=== PATIENT | male | born 1970 | race Asian ===

== ENCOUNTER 2020-07-15 14:17 | Outpatient (RCR) | payer OTHER, SELFPAY | END 2020-07-29 23:59 | LOC: EMPH 14:17 | PROVIDERS: Referring Provider Family Medicine Geriatric Medicine; Visit Provider Family Medicine Geriatric Medicine | DX: Z11.59 Encounter for screening for other viral diseases (principal) | CPT/HCPCS: 87635; U0003 ==

== ENCOUNTER 2020-08-27 10:53 | Outpatient (RCR) | payer OTHER, SELFPAY | END 2020-08-29 23:59 | LOC: EMPH 10:53 | PROVIDERS: Referring Provider Family Medicine Geriatric Medicine; Visit Provider Family Medicine Geriatric Medicine | DX: Z03.818 Encounter for observation for suspected exposure to other biological agents ruled out (principal) | CPT/HCPCS: 87426 ==

== ENCOUNTER 2020-09-23 08:05 | Outpatient (RCR) | payer OTHER, SELFPAY | END 2020-09-28 23:59 | LOC: EMPH 08:05 | PROVIDERS: Referring Provider Family Medicine Geriatric Medicine; Visit Provider Family Medicine Geriatric Medicine | DX: Z03.818 Encounter for observation for suspected exposure to other biological agents ruled out (principal) | CPT/HCPCS: 87426 ==

== ENCOUNTER 2020-10-27 11:00 | Outpatient (RCR) | payer OTHER, SELFPAY | END 2020-10-27 23:59 | LOC: IMMUN 11:00 | PROVIDERS: Visit Provider Family Medicine | DX: Z23 Encounter for immunization (principal) | CPT/HCPCS: 0011A; 0012A; 91301 ==

== ENCOUNTER 2020-10-28 14:08 | Outpatient (RCR) | payer OTHER, SELFPAY | END 2020-10-29 23:59 | LOC: EMPH 14:08 | PROVIDERS: Referring Provider Family Medicine Geriatric Medicine; Visit Provider Family Medicine Geriatric Medicine | DX: Z03.818 Encounter for observation for suspected exposure to other biological agents ruled out (principal) | CPT/HCPCS: 87426 ==

== ENCOUNTER 2020-11-27 14:11 | Outpatient (RCR) | payer OTHER, SELFPAY | END 2020-11-29 23:59 | LOC: EMPH 14:11 | PROVIDERS: Referring Provider Family Medicine Geriatric Medicine; Visit Provider Family Medicine Geriatric Medicine | DX: Z03.818 Encounter for observation for suspected exposure to other biological agents ruled out (principal) | CPT/HCPCS: 87426 ==

== ENCOUNTER 2020-12-25 09:47 | Outpatient (RCR) | payer OTHER, SELFPAY | END 2020-12-27 23:59 | LOC: EMPH 09:47 | PROVIDERS: Referring Provider Family Medicine Geriatric Medicine; Visit Provider Family Medicine Geriatric Medicine | DX: Z03.818 Encounter for observation for suspected exposure to other biological agents ruled out (principal) | CPT/HCPCS: 87426 ==

== ENCOUNTER 2021-01-20 09:31 | Outpatient (RCR) | payer OTHER, SELFPAY | END 2021-01-27 23:59 | LOC: EMPH 09:31 | PROVIDERS: Referring Provider Family Medicine Geriatric Medicine; Visit Provider Family Medicine Geriatric Medicine | DX: Z03.818 Encounter for observation for suspected exposure to other biological agents ruled out (principal) | CPT/HCPCS: 87426 ==

== ENCOUNTER 2021-02-02 12:12 | Outpatient (RCR) | payer OTHER, SELFPAY | END 2021-02-26 23:59 | LOC: EMPH 12:12 | PROVIDERS: Referring Provider Family Medicine Geriatric Medicine; Visit Provider Family Medicine Geriatric Medicine | DX: Z03.818 Encounter for observation for suspected exposure to other biological agents ruled out (principal) | CPT/HCPCS: 87426 ==

== ENCOUNTER 2021-04-27 11:21 | Outpatient (RCR) | payer OTHER, SELFPAY | END 2021-04-28 23:59 | LOC: EMPH 11:21 | PROVIDERS: Visit Provider Family Medicine Geriatric Medicine | DX: Z03.818 Encounter for observation for suspected exposure to other biological agents ruled out (principal) | CPT/HCPCS: 87426 ==

== ENCOUNTER 2021-08-31 09:04 | Outpatient (RCR) | payer OTHER, SELFPAY | END 2021-09-28 23:59 | LOC: EMPH 09:04 | PROVIDERS: Visit Provider Family Medicine Geriatric Medicine | DX: Z03.818 Encounter for observation for suspected exposure to other biological agents ruled out (principal) | CPT/HCPCS: 87426 ==

== ENCOUNTER 2021-10-28 08:54 | Outpatient (RCR) | payer OTHER, SELFPAY | END 2021-10-29 23:59 | LOC: EMPH 08:54 | PROVIDERS: Visit Provider Family Medicine Geriatric Medicine | DX: Z03.818 Encounter for observation for suspected exposure to other biological agents ruled out (principal) | CPT/HCPCS: 87426; 87635; U0003; U0005 ==

== ENCOUNTER 2021-11-29 08:40 | Outpatient (RCR) | payer OTHER, SELFPAY | END 2021-11-29 23:59 | LOC: EMPH 08:40 | PROVIDERS: Visit Provider Family Medicine Geriatric Medicine | DX: Z03.818 Encounter for observation for suspected exposure to other biological agents ruled out (principal) | CPT/HCPCS: 87426 ==

== ENCOUNTER 2021-12-27 08:41 | Outpatient (RCR) | payer OTHER, SELFPAY | END 2021-12-27 23:59 | LOC: EMPH 08:41 | PROVIDERS: Visit Provider Family Medicine Geriatric Medicine | DX: Z03.818 Encounter for observation for suspected exposure to other biological agents ruled out (principal) | CPT/HCPCS: 87426 ==

== ENCOUNTER → 2025-05-01 | Outpatient (CLI) | payer OTHER, SELFPAY ==
--- NOTE | 2025-05-01 08:35 | CT_ITS ---
PROCEDURE: ABDOMEN/PELVIS WITHOUT CONT 05/01/2025 REASON FOR EXAM: GROSS HEMATURIA TECHNIQUE: ABDOMEN/PELVIS WITHOUT CONT Noncontrast technique limits evaluation of the abdominal and pelvic viscera. Coronal and Sagittal reconstruction series were provided. One or more dose reduction techniques were used (e.g., Automated exposure control, adjustment of the mA and/or kV according to patient size, use of iterative reconstruction technique). RADIATION DOSE SUMMARY: CTDlvol: 6.43 mGy DLP: 322.96 mGycm COMPARISON: None FINDINGS: Lung bases: Chronic interstitial changes in the lung bases without a superimposed process Liver: Normal size. No obvious mass. Gallbladder: Unremarkable Spleen: Normal size. Pancreas: Normal size. No surrounding inflammation. Adrenals: Unremarkable Kidneys: No urolithiasis. No hydronephrosis. There is a simple 4 cm cyst in the lower pole of the right kidney. Bladder: Unremarkable Bowel: Bowel loops are unremarkable, no evidence of ileus, obstruction or inflammation. Appendix: Appendix seen on coronal recon images 45 through 50 No free intraperitoneal fluid, air, or suspicious adenopathy Peripheral calcifications in the abdominal aorta without aneurysm. Bones: Mild degenerative bony changes, no suspicious lesion or fracture CT/Abdomen/Pelvis without Cont IMPRESSION: No obstructive uropathy or suspicious solid renal lesion, there is a simple 4 c m cyst in the lower pole of the right kidney that needs no specific follow-up. No free intraperitoneal fluid, air, or suspicious adenopathy, normal appendix v isualized Reading Location: [id number]
[2025-05-01 10:55] LABS: Anion Gap 11 (5-15); BUN 20 mg/dL (4-19); BUN/Creat Ratio 19.9 RATIO (10-20); Calcium,Total 9.2 mg/dL (7.6-11.0); Carbon Dioxide 25.4 mmol/L (21.0-32.0); Chloride 103 mmol/L (98-108); Glucose 130 mg/dL (70-99); Potassium 4.2 mmol/L (3.3-5.1)
[2025-05-01 11:11] LABS: PSA,Total- Diagnostic 7.84 ng/mL (0.00-4.00)
== END | disposition home or self-care (01) ==
PROVIDERS: Visit Provider Urology
DX: R31.0 Gross hematuria (principal)
CPT/HCPCS: 36415; 74176; 80048; 84153

== ENCOUNTER → 2025-07-08 | Outpatient (CLI) | payer OTHER, SELFPAY ==
--- OUTSIDE RECORDS SUMMARY | 2025-07-08 10:03 | XMS RPT_ITS | CCD ---
Author Organization [facility] ion Partnership [employer] [facility] Care Team Providers Care Raspberry Checker Name Role Phone Care Physician, No Primary Primary Care Provider Unavailable Care Physician, No Primary Referring Provider Un available Larissa MCCLENDON, Dr. Carlos Spencer Attending Provider Care Physician, No Primary Referring Unava ilable Care Physician, No Primary Primary Care Unava ilCarlos Forde Attending Unavailable Problems Problem Classification Problem Date Documented Da te Episodic/Chronic Genitourinary symptoms and ill-defined conditions (1 source) Gross hematuria; Translations: [Gross hematuria] Onset: 05-06-2025 Episodic Results Test Name Value Interpretation Reference Range Facility Abdomen/Pelvis without Conto n 05-01-2025 Abdomen/Pelvis without Cont [facility] Imaging Services [address] [place] [address] [id number] Abdomen/Pelvis without Cont MR#: [id number] Acct: [id number] Name: SHIRAZ DELCID CHI Rep #: [id number] : 1970 M 54 From: Reji Mast MD PCP: Care Physician,No Primary Status: REG CLI Study: Abdomen/Pelvis without Cont Date of Exam: 01/21 Exam# [id number] Ordering Dr: Carlos Dias MD PROCEDURE: ABDOMEN/PELVIS WITHOUT CONT 05/01/2025 REASON FOR EXAM: GROSS HEMATURIA TECHNIQUE: ABDOMEN/PELVIS WITHOUT CONT Noncontrast technique limits evaluation of the abdominal and pelvic viscera. Coronal and Sagittal reconstruction series were provided. One or more dose reduction techniques were used (e.g., Automated exposure control, adjustment of the mA and/or kV according to patient size, use of iterative reconstruction technique). RADIATION DOSE SUMMARY: CTDlvol: 6.43 mGy DLP: 322.96 mGycm COMPARISON: None FINDINGS: Lung bases: Chronic interstitial changes in the lung bases without a superimposed process Liver: Normal size. No obvious mass. Gallbladder: Unremarkable Spleen: Normal size. Pancreas: Normal size. No surrounding inflammation. Adrenals: Unremarkable Kidneys: No urolithiasis. No hydronephrosis. There is a simple 4 cm cyst in the lower pole of the right kidney. Bladder: Unremarkable Bowel: Bowel loops are unremarkable, no evidence of ileus, obstruction or inflammation. Appendix: Appendix seen on coronal recon images 45 through 50 No free intraperitoneal fluid, air, or suspicious adenopathy Peripheral calcifications in the abdominal aorta without aneurysm. Bones: Mild degenerative bony changes, no suspicious lesion or fracture CT/Abdomen/Pelvis without Cont IMPRESSION: No obstructive uropathy or suspicious solid renal lesion, there is a simple 4 cm cyst in the lower pole of the right kidney that needs no specific follow-up. No free intraperitoneal fluid, air, or suspicious adenopathy, normal appendix visualized Reading Location: [id number] CC: Dr. Carlos Dias MD; No Primary Care Physician Water Meter Reader: Signed Normal [facility] Anion gap in Serum or Plasma Ordered By: Carlos Dias on 05-01-2025 Anion gap [Moles/Vol] 11 mmol/L 5-15 [facility] BUN/creatinine ratioOrdered By: Carlos Dias on 05-01-2025 Urea nitrogen/Creatinine [Mass ratio] 19.9 mg/mg 10- [facility] Basic Metabolic Profile (BMP )on 05-01-2025 BUN/CRE 19.9 RATIO Normal - [facility] Comment on above: Performed By: #### L 501.9940, L500.2500 #### [facility] [address] [place], [address] Calcium [Mass/Vol] 9.2 mg/dL Normal 7.6-11.0 [facility] Comment on above: Performed By: #### L 501.9940, L500.2500 #### [facility] [address] [place], [address] Chloride [Moles/Vol] 103 mmol/L Normal 98-108 [facility] Comment on above: Performed By: #### L 501.9940, L500.2500 #### [facility] [address] [place], [address] CO2 [Moles/Vol] 25.4 mmol/L Normal 21.0-32.0 [facility] Comment on above: Performed By: #### L 501.9940, L500.2500 #### [facility] [address] [place], [address] Creatinine [Mass/Vol] 1.01 mg/dL Normal 0.70-1.20 [facility] Comment on above: Performed By: #### L 501.9940, L500.2500 #### [facility] [address] [place], [address] GAP 11 Normal 5-15 [facility] Comment on above: Performed By: #### L 501.9940, L500.2500 #### [facility] [address] [place], [address] GFR/1.73 sq M.predicted among non-blacks MDRD (S/P/Bld) [Vol rate/Area] 87 mL/min/{1.73_m2} Normal >60 [facility] Comment on above: Result Comment: mL/m in/1.73m2 CKD-EPI Creatinine Equation (2020) Performed By: #### L 501.9940, L500.2500 #### [facility] [address] [place], [address] Glucose [Mass/Vol] 130 mg/dL High 70-99 [facility] Comment on above: Performed By: #### L 501.9940, L500.2500 #### [facility] [address] [place], [address] Potassium [Moles/Vol] 4.2 mmol/L Normal 3.3-5.1 [facility] Comment on above: Performed By: #### L 501.9940, L500.2500 #### [facility] [address] [place], [address] Sodium [Moles/Vol] 139 mmol/L Normal 133-145 [facility] Comment on above: Performed By: #### L 501.9940, L500.2500 #### [facility] [address] [place], [address] Urea nitrogen [Mass/Vol] 20 mg/dL High 4-19 [facility] Comment on above: Performed By: #### L 501.9940, L500.2500 #### [facility] [address] [place], [address] Carbon dioxide, total [Moles /volume] in Central venous bloodOrdered By: Carlos Dias on 05-01-2025 CO2 [Moles/Vol] 25.4 mmol/L 21.0-32.0 [facility] Chloride assayOrdered By: Rama Dias on 05-01-2025 Chloride [Moles/Vol] 103 mmol/L 98-108 [facility] Glomerular filtration rate ( GFR) estimation/1.73 sq m using serum, plasma, or whole bOrdered By: Carlos Dias on 05-01-2025 GFR/1.73 sq M.predicted among non-blacks MDRD (S/P/Bld) [Vol rate/Area] 87 mL/min/{1.73_m2} >60 [facility] Comment on above: mL/min/1.73m2 CKD-EP I Creatinine Equation (2020) PSA,Total- Diagnosticon 07-0 PSA, DIAGNOSTIC 7.84 ng/mL High 0.00-4.00 [facility] Comment on above: Result Comment: This test was performed using the [employer] tPSA method. Measured values of a patient??sample can vary depending on the testing procedure used. PSA values determined on patient samples by different testing procedures cannot be used interchangeably. If there is a change in PSA assays while monitoring therapy, sequential testing should be performed to confirm baseline values. Performed By: #### L 501.9940, L500.2500 #### [facility] [address] [place], [address] Potassium measurement (mass/ volume)Ordered By: Carlos Dias on 05-01-2025 Potassium (Unsp spec) [Mass/Vol] 4.2 mmol/L 3.3-5.1 [facility] Serum creatinine measurement (mass/volume)Ordered By: Carlos Dias on 05-01-2025 Creatinine [Mass/Vol] 1.01 mg/dL 0.70-1.20 [facility] Serum glucose measurement (m ass/volume)Ordered By: Carlos Dias on 05-01-2025 Glucose [Mass/Vol] 130 mg/dL High 70-99 [facility] Serum or plasma calcium sánchez urement (mass/volume)Ordered By: Carlos Dias on 05-01-2025 Calcium [Mass/Vol] 9.2 mg/dL 7.6-11.0 [facility] Serum or plasma urea nitroge n measurement (mass/volume)Ordered By: Carlos Dias on 05-01-2025 Urea nitrogen [Mass/Vol] 20 mg/dL High 4-19 [facility] Sodium levelOrdered By: Carloskavita Dias on 05-01-2025 Sodium [Moles/Vol] 139 mmol/L 133-145 [facility] COVID-19 virus antigen assay Ordered By: Dr. Delcid on 11-11-2022 SARS-CoV-2 (COVID-19) Ag IA.rapid Ql (Resp) [facility] No Panel Informationon 12-27 SARS-CoV-2 Antigen (Rapid) [facility] Work Phone: No Panel Informationon 11-29 SARS-CoV-2 Antigen (Rapid) [facility] Work Phone: No Panel Informationon 11-15 SARS-CoV-2 Antigen (Rapid) [facility] Work Phone: SARS coronavirus RNA [Presen ce] in Unspecified specimen by PORFIRIO with probe detectionon 10-28-2021 SARS-CoV RNA PORFIRIO+probe Ql (Unsp spec) Not detected Not Detected [facility] Work Phone: Comment on above: This nucleic acid am plification test was developed and itsperformance characteristics determined by [facility]. Nucleic acid amplification tests include RT-PCR and TMA. This test has not been FDA cleared orapproved. This test has been authorized by FDA under anEmergency Use Authorization (EUA). This test is onlyauthorized for the duration of time the declaration thatcircumstances exist justifying the authorization of theemergency use of in vitro diagnostic tests for detection [id number] virus and/or diagnosis of COVID-19 infectionunder section 564(b)(1) of the Act, 21 U.S.C. 360bbb-3(b)(1), unless the authorization is terminated or revokedsooner.When diagnostic testing is negative, the possibility of afalse negative result should be considered in the contextof a patient's recent exposures and the presence ofclinical signs and symptoms consistent with COVID-19. Anindividual without symptoms of COVID-19 and who is notshedding SARS-CoV-2 virus would expect to have a negative(not detected) result in this assay. No Panel Informationon 10-21 SARS-CoV-2 Antigen (Rapid) [facility] Work Phone: Encounters Encounter Date Encounter Type Care Provider Facility Start: 05-01-2025 End: 05-01-2025 ambulatory No Primary Care Physician -Cat Scan [facility] Start: 05-01-2025 End: 05-01-[address] Carlos Dias MD -Cat Scan [facility] Work Phone: Start: 05-01-2025 End: 05-01-2025 ambulatory No Primary Care Physician Facility:[facility] Start: 11-11-2022 End: 11-29-2022 ambulatory [facility] Work Phone: Start: 11-11-2022 End: 11-29-2022 Discharged Recurring [facility] Start: 03-21-2022 End: 03-29-2022 [facility] Start: 01-10-2022 End: 01-27-2022 [facility] Start: 12-27-2021 End: 12-27-2021 Discharged Recurring [facility] Start: 11-29-2021 End: 11-29-2021 Discharged Recurring [facility] Start: 10-28-2021 End: 10-29-2021 Discharged Recurring [facility] Procedures Date Procedure Procedure Detail Performing Clinician Start: 05-01-2025 CT of abdomen and pe lvis without contrast No Primary Care Physician Start: 05-01-2025 Assay of prostate sp ecific antigen total No Primary Care Physician Comment on above: This test was perfor med using the [employer] tPSA method. Measured values of a patient sample can vary depending on the testing procedure used. PSA values determined on patient samples by different testing procedures cannot be used interchangeably. If there is a change in PSA assays while monitoring therapy, sequential testing should be performed to confirm baseline values. Start: 03-21-2022 End: 03-21-2022 Viral antigen assay Start: 01-10-2022 End: 01-10-2022 Viral antigen assay Start: 12-27-2021 SARS-CoV-2 Antigen (Rapid) Start: 11-29-2021 SARS-CoV-2 Antigen (Rapid) Start: 11-15-2021 SARS-CoV-2 Antigen (Rapid) Start: 10-21-2021 SARS-CoV-2 Antigen (Rapid) Viral antigen assay Immunizations Immunization Date Immunization Notes Care Provider Maribell drake 11-24-2020 Covid (Moderna) [facility] Payers Date Payer Category Payer Self-pay [id number] 2025 Unknown [id number] Unknown [id number] Social History Date Type Detail [facility] Work Phone: Start: 1970 Sex Assigned At Male [facility] Tobacco smoking stat us [facility]IS Unknown if ever smoked [facility] Work Phone: Radiology Diagnostic study note 05-01-2025 Note Date & Type Note Facility 05-01-2025 Radiology Diagnostic study note [facility] Imaging Services [address] [place] [address] Abdomen/Pelvis without Cont MR#: [id number] Acct: [id number] Name: SHIRAZ DELCID CHI Rep #: [id number] : 1970 M 54 From: Radu Mast MD PCP: Care Physician,No Primary Status: REG CLI Study:Abdomen/Pelvis without Cont Date of Exa m: 05/01/25 Exam# [id number] Ordering Dr: Lucinda Dias MD PROCEDURE: ABDOMEN/PELVIS WITHOUT CONT 05/01/2025 REASON FOR EXAM: GROSS HEMATURIA TECHNIQUE: ABDOMEN/PELVIS WITHOUT CONT Noncontrast technique limits evaluation of the abdominal and pelvic viscera. Coronal and Sagittal reconstruction series were provided. One or more dose reduction techniques were used (e.g., Automated exposure control, adjustment of the mA and/or kV according to patient size, use of iterative reconstruction technique). RADIATION DOSE SUMMARY: CTDlvol: 6.43 mGy DLP: 322.96 mGycm COMPARISON: None FINDINGS: Lung bases: Chronic interstitial changes in the lung bases without a superimposed process Liver: Normal size. No obvious mass. Gallbladder: Unremarkable Spleen: Normal size. Pancreas: Normal size. No surrounding inflammation. Adrenals: Unremarkable Kidneys: No urolithiasis. No hydronephrosis. There is a simple 4 cm cyst in thelower pole of the right kidney. Bladder: Unremarkable Bowel: Bowel loops are unremarkable, no evidence of ileus, obstruction or inflammation. Appendix: Appendix seen on coronal recon images 45 through 50 No free intraperitoneal fluid, air, or suspicious adenopathy Peripheral calcifications in the abdominal aorta without aneurysm. Bones: Mild degenerative bony changes, no suspicious lesion or fracture CT/Abdomen/Pelvis without Cont IMPRESSION: No obstructive uropathy or suspicious solid renal lesion, there is a simple 4 cmcyst in the lower pole of the right kidney that needs no specific follow-up. No free intraperitoneal fluid, air, or suspicious adenopathy, normal appendix visualized Reading Location: [id number] CC: Dr. 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 COVID TESTING Chief Complaint Admit Date R31.0 Gross hematuria (STAT) May 01 025 8:23am Summary Purpose Family History No Family History Records Found Advance Directives No Advanced Directives Records Found Additional Source Comments Goals (unrecognized section and content) Goals may be documented in a n alternate sectionGoals may be documented in an alternate sectionGoals may be documented in an alternate sectionGoals may be documented in an alternate section Care Teams (unrecognized sec tion and content) Team Status: Active Member Role Status Dates No Primary Care Physician Primary Care Provider Active Team Status: Inactive Member Role Status Dates No Primary Care Physician Primary Care Provider Active Dr. Shiraz Delcid MD Attending Provider Active Team Status: Active Member Role/Relationship Status Dates No Primary Care Physician Primary Care Provider Active Team Status: Inactive Member Role/Relationship Status Dates No Primary Care Physician Primary Care Provider Active Start: May 01, 2025 End: May 01, 2025 No Primary Care Physician Referring Provider Active Start: May 01, 2025 End: May 01, 2025 Dr. Carlos Dias MD Attending Provider Active Start: May 01, 2025 End: May 01, 2025 (unrecognized sect ion and content) No Status Records Found INFORMATION SOURCE (unrecogn ized section and content) DATE CREATED AUTHOR 05/10/2025 [facility] FOR RECORDS PERTAINING TO PATIENTS WHO ARE OR HAVE BEEN ENROLLED IN A CHEMICAL DEPENDENCY/SUBSTANCEABUSE PROGRAM, SOME INFORMATION MAY BE OMITTED. This clinical summary was aggregated from multiple sources. Caution should be exercised in using it in the provision of clinical care. This summary normalizes information from multiple sources, and as a consequence, information in this document may materially change the coding, format and clinical context of patient data. In addition, data may be omitted in some cases. CLINICAL DECISIONS SHOULD BE BASED ON THE PRIMARY CLINICAL RECORDS. [facility]. provides no warranty or guarantee of the accuracy or completeness of information in this document.
[2025-07-09 13:08] LABS: PSA, Free 1.13 ng/mL; PSA, Free % 13.8 % (.); PSA, Total Ultrasensitive 8.210 ng/mL (0.000-4.000)
== END | disposition home or self-care (01) ==
LOC: POLAB3 08:50
PROVIDERS: Visit Provider Urology
DX: R97.20 Elevated prostate specific antigen [PSA] (principal)
CPT/HCPCS: 36415; 84153; 84154

== ENCOUNTER → 2025-07-15 | Outpatient (CLI) | payer OTHER, SELFPAY ==
--- OUTSIDE RECORDS SUMMARY | 2025-07-15 08:05 | XMS RPT_ITS | CCD ---
Author Organization [facility] Care Team Providers Care Sample Hand Name Role Phone Care Physician, No Primary Primary Care Provider Unavailable Care Physician, No Primary Referring Provider Un mark Dias MD, Dr. Carlos Spencer Attending Provider Care Physician, No Primary Referring Unava ilable Carlos Dias Attending Unavailable Care Physician, No Primary Primary Care Unava ilable Carlos Dias Attending Unavailable LarissaCarlos loera Referring Unavailable Care Physician, No Primary Primary Care Unava ilable LarissaCarlos Attending Unavailable Care Physician, No Primary Primary Care Unava ilable Problems Problem Classification Problem Date Documented Da te Episodic/Chronic Genitourinary symptoms and ill-defined conditions (1 source) Gross hematuria; Translations: [Gross hematuria] Onset: 05-06-2025 Episodic Other screening for suspected conditions (not mental disorders or infectious disease) (1 source) Elevated prostate specific antigen [PSA]; Translations: [Elevated prostate specific antigen [PSA]] Onset: 07-11-2025 Episodic Results Test Name Value Interpretation Reference Range Facility PSA Total+%Freeon 07-09-2025 PSA, FREE 1.13 ng/mL Normal N/A [facility] Comment on above: Result Comment: Werner ames ECLIA methodology. Performed By: #### L 3110.0500 #### [facility] [address] [place], [place], [address] PSA, FREE % 13.8 Normal . [facility] Comment on above: Result Comment: The table below lists the probability of prostate cancer for men with non-suspicious ABRAHAN results and total PSA between 4 and 10 ng/mL, by patient age (Mason et al, KATHY 1998, 279:1542). % Free PSA 50-64 yr 65-75 yr 0.00-10.00% 56% 55% 10.01-15.00% 24% 35% 15.01-20.00% 17% 23% 20.01-25.00% 10% 20% >25.00% 5% 9% Please note: Mason et al did not make specific recommendations regarding the use of percent free PSA for any other population of men. Performed at: [facility] [id number] Learning And Development Officer: Jovan Escobar PhD, Phone: [phone] Performed By: #### L 1380.0500 #### [facility] [address] [facility]. [place], [place], [id number] PSA, TOTAL ULTR 8.210 ng/mL Abnormal 0.000-4.000 [facility] Comment on above: Result Comment: Werner ames ECLIA methodology. According to the [employer], Serum PSA should decrease and remain at undetectable levels after radical prostatectomy. The AUA defines biochemical recurrence as an initial PSA value 0.200 ng/mL or greater followed by a subsequent confirmatory PSA value 0.200 ng/mL or greater. Values obtained with different assay methods or kits cannot be used interchangeably. Results cannot be interpreted as absolute evidence of the presence or absence of malignant disease. Performed By: #### L 2342.0500 #### [facility] [address] [facility] [address] [place], [place], [id number] Abdomen/Pelvis without Conto n 05-01-2025 Abdomen/Pelvis without Cont [facility] [address] [place], [place] [address] Abdomen/Pelvis without Cont MR#: [id number] Acct: [id number] Name: DAVID DELCID CHI Rep #: [id number] : 1970 M 54 From: Reji Mast MD PCP: Care Physician,No Primary Status: REG CLI Study: Abdomen/Pelvis without Cont Date of Exam: 01/21 Exam# [id number] Ordering Dr: Carlos Dias MD PROCEDURE: ABDOMEN/PELVIS [...] suspicious adenopathy, normal appendix visualized Reading Location: [facility] CC: Dr. Carlos Dias MD; No Primary Care Physician Irrigation Service Technician: Signed Normal [facility] Anion gap in Serum or Plasma Ordered By: Carlos Dias on 05-01-2025 Anion gap [Moles/Vol] 11 mmol/L 5-15 [facility] BUN/creatinine ratioOrdered By: Carlos Dias on 05-01-2025 Urea nitrogen/Creatinine [Mass ratio] 19.9 mg/mg - [facility] Basic Metabolic Profile (BMP )on 05-01-2025 BUN/CRE 19.9 RATIO Normal - [facility] Comment on above: Performed By: #### L 501.9940, L500.2500 #### [facility] [address] [place], [address] Calcium [Mass/Vol] 9.2 mg/dL Normal 7.6-11.0 [facility] Comment on above: Performed By: #### L 501.9940, L500.2500 #### [facility] [address] [place], [address] Chloride [Moles/Vol] 103 mmol/L Normal 98-108 [facility] Comment on above: Performed By: #### L 501.9940, L500.2500 #### [facility] [address] [place], [address] CO2 [Moles/Vol] 25.4 mmol/L Normal 21.0-32.0 [facility] Comment on above: Performed By: #### L 501.9940, L500.2500 #### [facility] [address] [place], [address] Creatinine [Mass/Vol] 1.01 mg/dL Normal 0.70-1.20 [facility] Comment on above: Performed By: #### L 501.9940, L500.2500 #### [facility] [address] [place], [address] GAP 11 Normal 5-15 [facility] Comment on above: Performed By: #### L 501.9940, L500.2500 #### [facility] [address] [place], [address] GFR/1.73 sq M.predicted among non-blacks MDRD (S/P/Bld) [Vol rate/Area] 87 mL/min/{1.73_m2} Normal >60 [facility] Comment on above: Result Comment: mL/m in/1.73m2 CKD-EPI Creatinine Equation (2020) Performed By: #### L 501.9940, L500.2500 #### [facility] [address] [place], [address] Glucose [Mass/Vol] 130 mg/dL High 70-99 [facility] Comment on above: Performed By: #### L 501.9940, L500.2500 #### [facility] [address] [place], [address] Potassium [Moles/Vol] 4.2 mmol/L Normal 3.3-5.1 [facility] Comment on above: Performed By: #### L 501.9940, L500.2500 #### [facility] [address] [place], [address] Sodium [Moles/Vol] 139 mmol/L Normal 133-145 [facility] Comment on above: Performed By: #### L 501.9940, L500.2500 #### [facility] [address] [place], [address] Urea nitrogen [Mass/Vol] 20 mg/dL High 4-19 [facility] Comment on above: Performed By: #### L 501.9940, L500.2500 #### [facility] [address] [place], [address] Carbon dioxide, total [Moles /volume] in Central venous bloodOrdered By: Carlos Dias on 05-01-2025 CO2 [Moles/Vol] 25.4 mmol/L 21.0-32.0 [facility] Chloride assayOrdered By: Rama Dias on 05-01-2025 Chloride [Moles/Vol] 103 mmol/L 98-108 [facility] Glomerular filtration rate ( GFR) estimation/1.73 sq m using serum, plasma, or whole bOrdered By: Carlos Dias on 05-01-2025 GFR/1.73 sq M.predicted among non-blacks MDRD (S/P/Bld) [Vol rate/Area] 87 mL/min/{1.73_m2} >60 [facility] Comment on above: mL/min/1.73m2 CKD-EP I Creatinine Equation (2020) PSA,Total- Diagnosticon 07-0 PSA, DIAGNOSTIC 7.84 ng/mL High 0.00-4.00 [facility] Comment on above: Result Comment: This [...] Performed By: #### L 501.9940, L500.2500 #### [facility] [address] [place], [address] Potassium measurement (mass/ volume)Ordered By: Carlos Dias on 05-01-2025 Potassium (Unsp spec) [Mass/Vol] 4.2 mmol/L 3.3-5.1 [facility] Serum creatinine measurement (mass/volume)Ordered By: Carlos Dias on 05-01-2025 Creatinine [Mass/Vol] 1.01 mg/dL 0.70-1.20 [facility] Serum glucose measurement (m ass/volume)Ordered By: Carlos Dias on 05-01-2025 Glucose [Mass/Vol] 130 mg/dL High 70-99 [facility] Serum or plasma calcium sánchez urement (mass/volume)Ordered By: Carlos Dias on 05-01-2025 Calcium [Mass/Vol] 9.2 mg/dL 7.6-11.0 [facility] Serum or plasma urea nitroge n measurement (mass/volume)Ordered By: Carlos Dias on 05-01-2025 Urea nitrogen [Mass/Vol] 20 mg/dL High 4-19 [facility] Sodium levelOrdered By: Carloskavita Dias on 05-01-2025 Sodium [Moles/Vol] 139 mmol/L 133-145 [facility] COVID-19 virus antigen assay Ordered By: Dr. Delcid on 11-11-2022 SARS-CoV-2 (COVID-19) Ag IA.rapid Ql (Resp) [facility] No Panel Informationon 12-27 SARS-CoV-2 Antigen (Rapid) [facility] Work Phone: No Panel Informationon 11-29 SARS-CoV-2 Antigen (Rapid) [facility] Work Phone: No Panel Informationon 11-15 SARS-CoV-2 Antigen (Rapid) [facility] Work Phone: SARS coronavirus RNA [Presen ce] in Unspecified specimen by PORFIRIO with probe detectionon 10-28-2021 SARS-CoV RNA PORFIRIO+probe Ql (Unsp spec) Not detected Not Detected [facility] Work Phone: Comment on above: This [...] of in vitro diagnostic tests for detection [id number] virus and/or diagnosis of COVID-19 infectionunder section [...] No Panel Informationon 10-21 SARS-CoV-2 Antigen (Rapid) [facility] Work Phone: Encounters Encounter Date Encounter Type Care Provider Facility Start: 07-15-2025 ambulatory Carlos Whatley lity:[facility] Start: 07-08-2025 ambulatory Carlos Whatley lity:[facility] Start: 05-01-2025 End: 05-01-2025 ambulatory No Primary Care Physician -Cat Scan [facility] Start: 05-01-2025 End: 05-01-[address] Carlos Dias MD -Cat Scan [facility] Work Phone: Start: 05-01-2025 End: 05-01-2025 ambulatory No Primary Care Physician Facility:[facility] Start: 11-11-2022 End: 11-29-2022 ambulatory [facility] Work Phone: Start: 11-11-2022 End: 11-29-2022 Discharged Recurring [facility] Start: 03-21-2022 End: 03-29-2022 Discharged Recurring [facility] Start: 01-10-2022 End: 01-27-2022 Discharged Recurring [facility] Start: 12-27-2021 End: 12-27-2021 Discharged Recurring [facility] Start: 11-29-2021 End: 11-29-2021 Discharged Recurring [facility] Start: 10-28-2021 End: 10-29-2021 Discharged Recurring [facility] Procedures Date Procedure Procedure Detail Performing Clinician [...] Immunizations Immunization Date Immunization Notes Care Provider Fa cility 11-24-2020 Covid (Moderna) [facility] 10-27-2020 Covid (Moderna) [facility] Payers Date Payer Category Payer Self-pay [id number] 2025 Unknown [id number] Unknown [id number] Unknown [id number] Unknown [id number] Social History Date Type Detail Facility [facility] Work Phone: Start: 1970 Sex Assigned At Male [facility] Work Phone: Radiology Diagnostic study note 05-01-2025 Note Date & Type Note Facility 05-01-2025 Radiology Diagnostic study note [facility] [address] [place], [place] [address] Abdomen/Pelvis without Cont MR#: [id number] Acct: [id number] Name: DAVID DELCID CHI Rep #: [id number] : 1970 M 54 From: Radu Mast MD PCP: Care Physician,No Primary Status: REG CLI Study:Abdomen/Pelvis without Cont Date of Exa m: 05/01/25 Exam# [id number] Ordering Dr: Lucinda Dias MD PROCEDURE: ABDOMEN/PELVIS [...] suspicious adenopathy, normal appendix visualized Reading Location: [id number] CC: Dr. 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 David Delcid MD Attending Provider Active Team Status: [...] ized section and content) DATE CREATED AUTHOR 07/13/2025 [facility] FOR RECORDS PERTAINING TO PATIENTS [...] BE BASED ON THE PRIMARY CLINICAL RECORDS. [employer] provides no warranty or guarantee of the accuracy or completeness of information in this document.
--- NOTE | 2025-07-15 08:10 | MRI_ITS ---
PROCEDURE: PELVIS W/WO CONTRAST, 07/15/2025 REASON FOR EXAM: ELEVATED PSA. PSA 8.210 on 07/08/2025 per technologist report TECHNIQUE: Multisequence multiplanar MRI pelvis was performed with and without IV contrast. IV Contrast: 15 mL Clariscan COMPARISON: None FINDINGS: Variable overall mild motion limitation. Prostate size: 5.3 x 4.3 x 5.4 cm, estimated volume 64.0 mL. Per the above provided PSA, PSA density is 0.128 ng/mL. Transition zone: PI-RADS 2 findings. Peripheral Zone: Background changes of likely prostatitis (PI-RADS 2). Neurovascular bundles: Unremarkable. Seminal vesicles: Unremarkable. Bladder: Underdistended and suboptimally evaluated. Mass-effect by the enlarged prostate with slight intraluminal protrusion of exophytic transition zone parenchyma. Lymph nodes: Unremarkable. Bones: No destructive or frankly suspicious bony lesions identified on nondedicated evaluation. Other: Trace nonspecific pelvic free fluid. Partially imaged likely trace hydroceles. MRI/Pelvis W/WO Contrast IMPRESSION: 1. Prostatomegaly/BPH and sequela of likely prostatitis without high risk lesio n identified (PI-RADS 2). 2. No overt pelvic lymphadenopathy. 3. Trace nonspecific pelvic free fluid. 4. Additional description as above. Reading Location: [facility]
== END | disposition home or self-care (01) ==
PROVIDERS: Referring Provider Urology; Visit Provider Urology
DX: R97.20 Elevated prostate specific antigen [PSA] (principal)
CPT/HCPCS: 72197; A9575; A4216